=== PATIENT | female | born 1990 | race Two or more races ===

== ENCOUNTER 2016-07-02 12:19 | Emergency (ER) | payer OTHER ==
[2016-07-02 12:33] VITALS: BP 102/82; PULSE 82; RESP 16; TEMP 98.2; O2SAT 98
--- NOTE | 2016-07-02 12:50 | UCPHY ---
H & P Time Seen by Provider: 07/02/16 12:27 Patient Type: New HPI/ROS: CHIEF COMPLAINT: Sore throat, rhinorrhea HPI: The patient is a 25-year-old female with no significant past medical history. She complains of approximately 2-3 days of clear sinus congestion and sore throat. She is able to tolerate food and fluids by mouth without difficulty. She denies fever. She denies cough. REVIEW OF SYSTEMS: Aside from elements discussed in the HPI, a comprehensive 10-point review of systems was reviewed and is negative. PMH: None significant. SOCIAL HISTORY: Works at [employer]. FAMILY HISTORY: Reviewed, noncontributory PHYSICAL EXAM: General:Patient is alert, in no acute distress. ENT:Eyes are normal to inspection. Mild pharyngeal erythema but no exudate. No tonsillomegaly. No drooling. Uvula normal and midline. Neck: Normal inspection. Full range of motion. Respiratory:No respiratory distress. Breath sounds normal bilaterally. Cardiovascular: Regular rate and rhythm. Strong peripheral pulses. Normal cap refill. Neuro: Oriented x3. Normal motor function. Normal sensory function. Smoking Status: Never smoked Constitutional: Initial Vital Signs Temperature (C) 36.8 C 07/02/16 12:31 Heart Rate 82 07/02/16 12:31 Respiratory Rate 16 07/02/16 12:31 Blood Pressure 102/82 H 07/02/16 12:31 O2 Sat (%) 98 07/02/16 12:31 O2 Delivery Mode Room Air Allergies/Adverse Reactions: No Known Allergies Allergy (Verified 07/02/16 12:33) Home Medications: Medication Instructions Recorded NK [No Known Home Meds] 07/02/16 MDM/Departure - MDM ED Course/Re-evaluation: Rapid strep screen is negative. This is a young healthy patient appears to be suffering from an upper respiratory infection. She did receive a flu shot , is afebrile, and does not endorse body aches so I have a low index suspicion for influenza. I think she is appropriate for outpatient workup. - Depart Disposition: Home, Routine, Self-Care Clinical Impression: Upper respiratory infection Condition: Good Instructions: Pharyngitis (ED) Additional Instructions: Follow-up with your primary doctor within 72 hours. Return to the Emergency Department for high fever, difficulty swallowing, difficulty tolerating liquids , neck pain or stiffness, shortness of breath or other concerns. Use Tylenol and/or ibuprofen as directed for pain. Drink plenty of fluids. - PQRS PQRS Measurement: 134: Depression screening and followup, PRIME MD-PHQ2 (12 years and older) Over the last 2 weeks, how often have you been bothered by any of the following problems? 1. Feeling down, depressed, or hopeless? 2. Little interest or pleasure in doing things? Patient answered no to both 1 and 2 130: Documentation of medications. Reviewed all patient medications, doses, route and frequency. 226: Do you smoke? No. 51: 18 years old and older with diagnosis of COPD, spirometry performance. Spirometry not performed; equipment not available. Patient has no history of COPD 52: 18 years old and older with COPD and symptoms of COPD or FEV1<60% predicted prescribed a B Agonist. Spirometry not performed; equipment not available.
== END 2016-07-02 13:16 | disposition home or self-care (01) ==
LOC: CED 12:19
DX: J06.9 Acute upper respiratory infection, unspecified (principal)
CPT/HCPCS: 87880-PO; 99204-PO; G0463-PO